=== PATIENT | male | born 1950 | race Caucasian/White ===

== ENCOUNTER 2023-04-24 18:08 | Emergency (ER) | payer MEDICARE, OTHER, SELFPAY ==
[2023-04-24 18:13] VITALS: BP 153/88
--- NOTE | 2023-04-24 20:48 | ED.SKININJ ---
HPI-Injury
General
Chief Complaint: Eye Problems
Source: patient
Exam Limitations: none
Time Seen by Provider: 04/24/23 20:15
Nursing documentation reviewed up to this point in time: agreed with
Travel History
Have you had any contact with someone who has COVID-19?: No
Do you have any symptoms of coronavirus? Fever > 100 degrees, chills, cough, shortness of breath, sore throat, loss of taste or smell, muscle aches, or headache?: No
History of Present Illness-Injury
Initial Injury comments:
72-year-old male with history of A-fib on Xarelto, HLD presents with irritation of the left eye after using a chain saw to cut wood at 4 PM and he felt some foreign body in the eye, he went to his [id number] who is a armament aircraft mechanic and she put
some numbing drops and there which felt better he presents with irritation of the left eye, it is red and tearing. Denies change in vision.
Past History
Past History
ED Past Medical History: Arrthythmia (Afib on Xarelto), HTN and Hypercholesterolemia
ED Past Surgical History: Orthopedic and Other (hernia)
Social History
Tobacco: Non-smoker
Alcohol: None
Personal:
Living: with family
Employment: Employed
Review of Systems
Review of Systems
Allergies reviewed?: Yes
All Other Systems: ROS reviewed and negative except as documented in HPI and ROS
EENT: Reports other (Redness, irritation, foreign body sensation left eye)
ABD/GI: Denies nausea
Neurological: Denies headache
Phy Exam
Physical Exam
Physical Exam:
PHYSICAL EXAMINATION:
General: no apparent distress, not acutely ill
Neuro: alert and oriented.
Psychiatric: well kept. interactive and cooperative
Musculoskeletal: Moves with ease
Skin: Warm, pink.
Eye Exam
Eye Exam: PERRL, EOMI, globe normal and other (Lady everted, no foreign body noted in the eye. Fluorescein stain reveals a moderate-sized corneal abrasion lateral aspect of cornea between 2 and 4:00)
Able to obtain acuity?: Yes
Course
Orders/Labs/Results
Orders:
Orders
04/24/23 20:47
Gentamicin [Genoptic 0.3% Eye Drops] See Dose Instructions OPHTH NOW STA
04/24/23 20:53
Visual Acuity- Treatment ONCE
04/24/23 21:10
Fluorescein Sodium [Ful-Isela] 1 mg .ROUTE .STK-MED ONE
Vital Signs
Initial and Last Documented VS:
Initial Vital Signs
Temp Pulse Resp BP Pulse Ox
98.4 F 60 20 153/88 97
04/24/23 18:13 04/24/23 18:13 04/24/23 18:13 04/24/23 18:13 04/24/23 18:13
Last Documented Vital Signs
Temp Pulse Resp BP Pulse Ox
98.4 F 60 20 153/88 97
04/24/23 18:13 04/24/23 18:13 04/24/23 18:13 04/24/23 18:13 04/24/23 18:13
MDM/Problems Addressed
Differential Diagnosis Includes:
Foreign body of the eye, corneal abrasion
MDM/Problems Addressed:
72-year-old male with history of A-fib on Xarelto, HLD presents with irritation of the left eye after using a chain saw to cut wood at 4 PM and he felt some foreign body in the eye, he went to his kjoduvzv-fi-esw who is a armament aircraft mechanic and she put
some numbing drops and there which felt better he presents with irritation of the left eye, it is red and tearing. Denies change in vision.
Moderate-sized corneal abrasion lateral left cornea between 2 and 4:00
Good relief of pain with topical anesthetic
Visual acuity noted
Patient sees Dr. Silva and he will follow-up in 2 days.
He was given gentamicin eyedrops
*Critical Care Note
Total Time (30-74mins, 75-104mins- exclusive of procedures): Not Applicable
ED Attending Note
-
Portions of this chart may have been created with voice recognition software.� Occasional wrong word or��sound alike� substitutions may have occurred due to the inherent limitations of voice recognition software.
Discharge Plan
Departure
Patient Disposition: Home (Routine Discharge)
Date of Disposition: 04/24/23
Time of Disposition: 20:57
Patient with high blood pressure during this ER visit?: No
Condition: Good
Discharge Problem:
Left cornea abrasion
Instructions: Corneal Abrasion (DC), How to Use Eye Drops
Prescriptions:
No Action
ascorbic acid (vitamin C) [Vitamin C] 500 MG tablet
500 mg PO DAILY
cyanocobalamin (vitamin B-12) 5,000 MCG tablet,disintegrating
5,000 mcg PO DAILY
simvastatin 20 MG tablet
20 mg PO HS 0RF
Xarelto 20 MG tablet
20 mg PO QPM
metoprolol succinate [Toprol XL] 50 MG tablet extended release 24 hr
50 mg PO HS
Glucosamine Chondroitin PLUS [id number] mg Capsule
1 cap PO DAILY
Fish Oil
1 cap PO DAILY
vitamin B complex Capsule
1 cap PO DAILY
coenzyme Q10 [CoQ-10] 100 mg Capsule
100 mg PO DAILY
Referrals:
Peng Silva MD [Active] - Follow up in 2-3 days
Activity Restrictions/Additional Instructions:
As we discussed, Tylenol as needed for pain, cool compress over the eye may help
Call your eye doctor's office tomorrow make an appointment for Saturday for follow-up
Use the gentamicin eyedrops as follows: 1 to 2 drops in the affected eye 4 times a day for 5 days
Interventions
Interventions:
*Risk Screen - Suicide Last Done: 04/24/23 18:13
*General Assessment Last Done: 04/24/23 18:13
*Neglect/Abuse Screening Last Done: 04/24/23 18:13
ED- Fall Risk Assessment Last Done: 04/24/23 20:03
*ED COVID-19 Vaccine History Last Done: 04/24/23 20:03
*Nursing Disposition Last Done: 04/24/23 21:12
Discharge Date and Time
Discharge Date/Time: 04/24/23 21:14
[2023-04-24] MEDS: GENOPTIC 0.3% EYE DROPS 1 DROP OPHTH (21:13)
== END 2023-04-24 21:14 | disposition home or self-care (01) ==
LOC: EMR 18:08
PROVIDERS: EMERGENCY PHYSICIAN Emergency Medicine; FAMILY PHYSICIAN Family Medicine
DX: S05.02XA Injury of conjunctiva and corneal abrasion without foreign body, left eye, initial encounter (principal); X58.XXXA Exposure to other specified factors, initial encounter; Z79.01 Long term (current) use of anticoagulants
CPT/HCPCS: 99283